=== PATIENT | female | born 1945 | race Caucasian/White ===

== ENCOUNTER → 2017-12-27 12:15 | Outpatient (CLI) | payer MEDICARE, SELFPAY ==
--- NOTE | 2017-12-27 | DI.MRI.S_ITS ---
PROCEDURE: MR LOWER LEG RT WO CON INDICATIONS: GOODRICH SPLINTS TECHNIQUE: Noncontrast coronal and sagittal T1 spin echo and STIR; axial T1 spin echo and T2 fast spin echo with fat saturation through the right tibia/fibula. COMPARISON: None. FINDINGS: Image quality: Excellent. Bones: The visualized bone marrow demonstrates normal signal on all sequences. The overlying cortex appears intact. No fractures lines or intra-osseous lesions. Soft tissues: The scanned muscles demonstrate normal overall bulk and internal signal. Subcutaneous tissues appear normal as well. No soft tissue masses are present. IMPRESSION: Overall, unremarkable examination. No evidence of fracture. No abnormal marrow edema. The periosteum appears grossly normal without definite evidence of anteromedial tibial stress syndrome (goodrich splints). Dictated by: Emmett Mcmahon M.D. on 12/29/2017 at 13:43 Approved by: mEmett Mcmahon M.D. on 12/29/2017 at 13:47
== END ==
PROVIDERS: PCP Obstetrics & Gynecology; Visit Provider Orthopaedic Surgery Foot and Ankle Surgery
DX: S86.891A Other injury of other muscle(s) and tendon(s) at lower leg level, right leg, initial encounter (principal)
CPT/HCPCS: 73718